=== PATIENT | female | born 1980 | race Caucasian/White ===

== ENCOUNTER 2021-02-27 10:12 | Emergency (ER) | payer MEDICAID ==
[~2021-02-27] VITALS: Ht 152.4 cm; Wt 108.9 kg
[~2021-02-27 10:12] MED LIST: CIPR500T4 PO; METR500T PO
[2021-02-27 11:55] VITALS: BP 131/83
== END 2021-02-27 13:11 | disposition home or self-care (01) ==
LOC: ER 10:12
DX: J06.9 Acute upper respiratory infection, unspecified (principal); J21.9 Acute bronchiolitis, unspecified; F17.210 Nicotine dependence, cigarettes, uncomplicated; Z20.822 Contact with and (suspected) exposure to COVID-19
CPT/HCPCS: 36415; 87426

== ENCOUNTER → 2021-04-25 | Emergency (ER) | payer MEDICAID ==
[~2021-04-25] VITALS: Ht 172.7 cm; Wt 104.3 kg
[2021-04-25 14:08] VITALS: BP 115/74
== END | disposition left against medical advice (07) ==
LOC: ER 14:03
DX: R50.9 Fever, unspecified (principal); R11.2 Nausea with vomiting, unspecified; Z53.21 Procedure and treatment not carried out due to patient leaving prior to being seen by health care provider

== ENCOUNTER 2022-07-02 10:47 | Emergency (ER) | payer MEDICAID ==
[~2022-07-02] VITALS: Ht 172.7 cm; Wt 111.7 kg
[2022-07-02 11:25] VITALS: BP 117/86
[2022-07-02 12:57] LABS: Urine Specific Gravity 1.022 (1.001-1.035)
[2022-07-02 12:58] LABS: Urine Blood 3+ /uL (Negative)
== END 2022-07-02 13:55 | disposition home or self-care (01) ==
LOC: ER 10:47
DX: O20.0 Threatened abortion (principal); O98.511 Other viral diseases complicating pregnancy, first trimester; B34.9 Viral infection, unspecified; Z3A.01 Less than 8 weeks gestation of pregnancy
CPT/HCPCS: 36415; 81003; 84702